=== PATIENT | male | born 1990 | race Caucasian/White ===

== ENCOUNTER 2022-03-06 13:49 | Emergency (ER) | payer MEDICAID, OTHER ==
[~2022-03-06] VITALS: Ht 182.9 cm; Wt 80.0 kg
[2022-03-06] MEDS ORDERED: OLANZAPINE 10 MG/VIAL IM STA (16:22)
[2022-03-06] MEDS ORDERED: DIPHENHYDRAMINE 50MG/ML VIAL IM STA (16:22)
[2022-03-06] MEDS ORDERED: LORAZEPAM 2MG/ML CPJ IM ONE (16:45)
[2022-03-06] MEDS: DIPHENHYDRAMINE 50MG/ML VIAL IM NR ×2 (18:12→21:07)
[2022-03-06] MEDS: OLANZAPINE 10 MG/VIAL IM NR ×2 (18:12→21:07)
[2022-03-06 18:51] LABS: HEMOGLOBIN. 14.4 g/dL (14.0-18.0); MEAN CORPUSCULAR HEMOGLOBIN 30.6 pg (28.0-32.0); MEAN CORPUSCULAR VOLUME 91.1 fL (80.0-94.0); MEAN PLATELET VOLUME 7.8 fl (7.4-10.4); PLATELET 290 x1000/uL (130-400); RED BLOOD CELL COUNT 4.72 mill/uL (4.7-6.1)
[2022-03-06 18:53] LABS: CHLORIDE 109 mEq/L (98-107)
[2022-03-06 19:00] LABS: ETHANOL BLOOD < 10 mg/dL
[2022-03-06 19:51] LABS: CLARITY URINE TURBID (CLEAR); COLOR URINE YELLOW (YELLOW); KETONES URINE NEGATIVE (NEGATIVE); LEUKOCYTE ESTERASE URINE NEGATIVE (NEGATIVE); NITRITE URINE NEGATIVE (NEGATIVE); OCCULT BLOOD URINE 1+ (NEGATIVE); PROTEIN URINE 2+ (NEGATIVE); SPECIFIC GRAVITY URINE 1.019 (1.005-1.030); UROBILINOGEN URINE 0.2 E.U./dL (0.2-1.0)
[2022-03-06 20:04] LABS: *AMPHETAMINES SCREEN URINE NEGATIVE (NEGATIVE); *BARBITURATES SCREEN URINE NEGATIVE (NEGATIVE); *BENZODIAZEPINES SCREEN URINE NEGATIVE (NEGATIVE); *COCAINE SCREEN URINE NEGATIVE (NEGATIVE); CANNABINOID URINE SCREEN PRESUMTIVE POSITIVE (NEGATIVE); METHADONE URINE SCREEN NEGATIVE (NEGATIVE); OPIATES URINE SCREEN NEGATIVE (NEGATIVE); PHENCYCLIDINE URINE SCREEN NEGATIVE (NEGATIVE)
[2022-03-06] MEDS: POTASSIUM CHLORIDE 20MEQ TABLET SR PO SCH (21:07)
[2022-03-06 23:12] LABS: PLATELET ESTIMATE NORMAL
[2022-03-07] MEDS: POTASSIUM CHLORIDE 20MEQ TABLET SR PO SCH ×2 (09:00→09:19)
[2022-03-07] MEDS ORDERED: ACETAMINOPHEN 325MG TABLET PO ONE (11:00)
[2022-03-07] MEDS: LEVOFLOXACIN 500MG TABLET PO SCH (11:10)
[2022-03-07] MEDS: DIVALPROEX SODIUM 250MG DR TABLET PO SCH ×2 (17:17→21:00)
[2022-03-07] MEDS: OLANZAPINE 5MG TABLET PO SCH ×2 (17:17→21:00)
[2022-03-08] MEDS ORDERED: HALOPERIDOL LACTATE 5MG/ML VIAL IM ONE (00:15)
[2022-03-08] MEDS: POTASSIUM CHLORIDE 20MEQ TABLET SR PO SCH (09:00)
[2022-03-08] MEDS: DIVALPROEX SODIUM 250MG DR TABLET PO SCH ×2 (09:00→21:00)
[2022-03-08] MEDS ORDERED: LORAZEPAM 2MG/ML CPJ IM STA (09:25)
[2022-03-08] MEDS ORDERED: OLANZAPINE 10 MG/VIAL IM ONE (09:30)
[2022-03-08] MEDS: OLANZAPINE 5MG TABLET PO SCH ×2 (09:35→21:00)
[2022-03-08] MEDS: LEVOFLOXACIN 500MG TABLET PO SCH (11:00)
[2022-03-09] MEDS: OLANZAPINE 5MG TABLET PO SCH ×2 (09:44→23:22)
[2022-03-09] MEDS: DIVALPROEX SODIUM 250MG DR TABLET PO SCH ×2 (09:44→23:22)
[2022-03-09] MEDS: POTASSIUM CHLORIDE 20MEQ TABLET SR PO SCH (09:44)
[2022-03-09] MEDS: LEVOFLOXACIN 500MG TABLET PO SCH (12:39)
[2022-03-09 13:19] LABS: BASOPHILS % 0.4 % (0.0-2.0); EOSINOPHILS % 0.8 % (0.0-5.0); HEMATOCRIT. 43.1 % (42.0-52.0); HEMOGLOBIN. 14.8 g/dL (14.0-18.0); LYMPHOCYTES % 18.3 % (20.0-50.0); MEAN CORPUSCULAR HEMOGLOBIN 31.1 pg (28.0-32.0); MEAN CORPUSCULAR VOLUME 90.8 fL (80.0-94.0); MEAN PLATELET VOLUME 7.2 fl (7.4-10.4); MONOCYTES % 8.1 % (2.0-8.0); NEUTROPHILS % 72.4 % (40.0-76.0); PLATELET 291 x1000/uL (130-400); RED BLOOD CELL COUNT 4.74 mill/uL (4.7-6.1); RED CELL DISTRIBUTION WIDTH 13.7 % (11.6-14.6)
[2022-03-10 00:19] VITALS: BP 108/65
== END 2022-03-10 01:18 | disposition still patient (30) ==
LOC: ER 13:49
DX: F20.0 Paranoid schizophrenia (principal); R45.850 Homicidal ideations; Z20.822 Contact with and (suspected) exposure to COVID-19; Z78.1 Physical restraint status; Z75.1 Person awaiting admission to adequate facility elsewhere
CPT/HCPCS: 36415; 70450; 70486; 80053; 80305; 80307; 80320; 80329; 81003; 85025; 87426; 96372; 99285; C9803; J1200; J2060; J3490; U0003; U0005; G0480